=== PATIENT | female | born 1990 | race Caucasian/White ===

== ENCOUNTER 2017-05-03 14:58 | Emergency (ER) | payer SELFPAY ==
[2017-05-03] MEDS ORDERED: NORMAL SALINE 1000 ML 1,000 ML IV ONE (16:50)
[2017-05-03] MEDS ORDERED: DIPHENHYDRAMINE HCL 50 MG/ML VIAL IV ONE (16:50)
--- NOTE | 2017-05-03 16:53 | ER Document Report ---
HPI - HPI Patient complains to provider of: Nasal congestion, cough Onset: Other - 4 days Onset/Duration: Persistent Quality of pain: Achy Pain Level: 4 Context: Patient presents complaining of nasal congestion with cough for the past 4 days. Patient states she has felt warm but has not measured a fever. Patient is currently 18 weeks . Patient denies any urinary symptoms. Patient does report she has had some nausea and vomiting during the . Associated Symptoms: Nonproductive cough, Nausea, Vomiting, Rhinnorhea. denies : Sore throat Exacerbated by: Denies Relieved by: Denies Similar symptoms previously: No Recently seen / treated by doctor: No - ROS ROS below otherwise negative: Yes Systems Reviewed and Negative: Yes All other systems reviewed and negative - CONSTITUTIONAL Constitutional: REPORTS: Chills - EENT EENT: REPORTS: Nasal Drainage-Clear - NEURO Neurology: REPORTS: Headache. DENIES: Weakness, Vision blurred, Dizzinesss / Vertigo - CARDIOVASCULAR Cardiovascular: DENIES: Chest pain - RESPIRATORY Respiratory: REPORTS: Coughing. DENIES: Trouble Breathing - GASTROINTESTINAL Gastrointestinal: REPORTS: Nausea, Patient vomiting. DENIES: Abdominal Pain - REPRODUCTIVE LMP: sept Reproductive: REPORTS: :. DENIES: Abnormal bleeding / discharge - DERM Skin Color: Normal Skin Problems: None Past Medical History - General Information source: Patient - Social History Smoking Status: Current Every Day Smoker Chew tobacco use (# tins/day): No Frequency of alcohol use: None Drug Abuse: None Occupation: [employer] Family History: Reviewed & Not Pertinent Patient has suicidal ideation: No Patient has homicidal ideation: No - Medical History Medical History: Negative Renal/ Medical History: Denies: Hx Peritoneal Dialysis Past Surgical History: Reports: Hx Cholecystectomy, Hx Orthopedic Surgery, Hx Tonsillectomy Vertical Provider Document - CONSTITUTIONAL Agree With Documented VS: Yes Exam Limitations: No Limitations General Appearance: WD/WN, No Apparent Distress - INFECTION CONTROL TRAVEL OUTSIDE OF THE [place]. IN LAST 30 DAYS: No - HEENT HEENT: Atraumatic, Normocephalic. negative: Pharyngeal Exudate, Pharyngeal Tenderness, Pharyngeal Erythema, Tympanic Membrane Red, Tympanic Membrane Bulging Notes: Clear rhinorrhea, swollen nasal mucosa - NECK Neck: Normal Inspection, Supple. negative: Lymphadenopathy-Left, Lymphadenopathy-Right - RESPIRATORY Respiratory: No Respiratory Distress, Chest Non-Tender, Rhonchi O2 Sat by Pulse Oximetry: 100 - CARDIOVASCULAR Cardiovascular: Regular Rate, Regular Rhythm, No Murmur - GI/ABDOMEN Gastrointestinal: Abdomen Soft, Abdomen Non-Tender - BACK Back: Normal Inspection. negative: CVA Tenderness-Right, CVA Tenderness-Left - MUSCULOSKELETAL/EXTREMETIES Musculoskeletal/Extremeties: MAEW - NEURO Level of Consciousness: Awake, Alert, Appropriate Motor/Sensory: No Motor Deficit - DERM Integumentary: Warm, Dry, No Rash Course - Re-evaluation Re-evalutation: 05/03/17 19:29 IV fluids infusing. Patient complains of continued nausea and vomiting. Patient with small amount of emesis to emesis bag 05/03/17 21:13 Patient reports nausea improved, IV fluids infused. Discussed results of chest x-ray. Patient encouraged to follow-up with home management supervisor to get established for continued care. Patient states that she is feeling better. No abdominal tenderness. - Vital Signs Vital signs: Temp Pulse Resp BP Pulse Ox 97.9 F 74 18 92/52 L 100 05/03/17 15:43 05/03/17 15:43 05/03/17 15:43 05/03/17 15:46 05/03/17 15:43 - Laboratory Result Diagrams: 05/03/17 19:08 05/03/17 19:08 Laboratory results interpreted by me: 05/03/17 21:14 Labs- Entire Visit 05/03/17 05/03/17 05/03/17 17:05 19:08 19:08 WBC 12.9 H RBC 3.64 L Hgb 11.5 L Hct 33.1 L MCV 91 MCH 31.5 MCHC 34.6 RDW 13.2 Plt Count 211 Seg Neutrophils % 72.6 Lymphocytes % 19.5 Monocytes % 5.4 Eosinophils % 2.2 Basophils % 0.3 Absolute Neutrophils 9.4 H Absolute Lymphocytes 2.5 Absolute Monocytes 0.7 Absolute Eosinophils 0.3 Absolute Basophils 0.0 Sodium 136.4 L Potassium 3.7 Chloride 105 Carbon Dioxide 24 Anion Gap 7 BUN 7 Creatinine 0.44 L Est GFR ( Amer) > 60 Est GFR (Non-Af Amer) > 60 Glucose 77 Calcium 9.0 Total Bilirubin 0.2 Direct Bilirubin 0.1 Neonat Total Bilirubin Not Reportable Neonat Direct Bilirubin Not Reportable Neonat Indirect Bili Not Reportable AST 38 H ALT 17 Alkaline Phosphatase 51 Total Protein 6.4 Albumin 3.9 Urine Color YELLOW Urine Appearance SLIGHTLY-CLOUDY Urine pH 7.0 Ur Specific [place] 1.026 Urine Protein NEGATIVE Urine Glucose (UA) NEGATIVE Urine Ketones NEGATIVE Urine Blood NEGATIVE Urine Nitrite NEGATIVE Urine Bilirubin NEGATIVE Urine Urobilinogen NEGATIVE Ur Leukocyte Esterase NEGATIVE Urine WBC (Auto) 1 Urine RBC (Auto) 3 Squamous Epi Cells Auto 3 Urine Mucus (Auto) MOD Urine Ascorbic Acid 40 H - Diagnostic Test Radiology reviewed: Reports reviewed Discharge - Discharge Clinical Impression: Nasal congestion Upper respiratory infection Qualifiers: URI type: unspecified URI Qualified Code(s): J06.9 - Acute upper respiratory infection, unspecified Nausea and vomiting Qualifiers: Vomiting type: unspecified Vomiting Intractability: non-intractable Qualified Code(s): R11.2 - Nausea with vomiting, unspecified Condition: Stable Disposition: HOME, SELF-CARE Instructions: Acetaminophen, Antinausea Medication ([facility]), Intravenous (IV) Fluids ([facility]), Upper Respiratory Illness ([facility]), Vomiting ([facility]) Additional Instructions: Return immediately for any new or worsening symptoms Followup with your primary care provider, call tomorrow to make a followup appointment Follow up with the health department to get care established Use saline nasal spray [id number] to help with nasal congestion symptoms You may take Benadryl [id number] to help with nasal congestion symptoms Prescriptions: Metoclopramide HCl [Reglan 10 mg Tablet] 10 mg PO TID PRN #12 tablet PRN Reason: Forms: Return to Work [facility] [NO LOCAL MD] - Follow up tomorrow
--- NOTE | 2017-05-03 17:25 | RADIOLOGY REPORT (SQ) ---
EXAM DESCRIPTION: CHEST PA/LAT COMPLETED DATE/TIME: 05/03/2017 5:19 pm REASON FOR STUDY: cough COMPARISON: None. EXAM PARAMETERS: NUMBER OF VIEWS: two views TECHNIQUE: Digital Frontal and Lateral radiographic views of the chest acquired. RADIATION DOSE: NA LIMITATIONS: none FINDINGS: LUNGS AND PLEURA: No opacities, masses or pneumothorax. No pleural effusion. MEDIASTINUM AND HILAR STRUCTURES: No masses or contour abnormalities. HEART AND VASCULAR STRUCTURES: Heart normal size. No evidence for failure. BONES: No acute findings. HARDWARE: None in the chest. OTHER: No other significant finding. IMPRESSION: NO SIGNIFICANT RADIOGRAPHIC FINDING IN THE CHEST. TECHNICAL DOCUMENTATION: JOB ID: [id number] [employer]- All Rights Reserved
[2017-05-03 17:28] LABS: APPEARANCE,URINE SLIGHTLY-CLOUDY; BILIRUBIN,URINE NEGATIVE (NEGATIVE); COLOR,URINE YELLOW; GLUCOSE, URINE NEGATIVE (NEGATIVE); KETONES,URINE NEGATIVE (NEGATIVE); LEUKOCYTE ESTERASE,URINE NEGATIVE (NEGATIVE); NITRITE,URINE NEGATIVE (NEGATIVE); PROTEIN,URINE NEGATIVE (NEGATIVE); URINE SPECIFIC GRAVITY 1.026; UROBILINOGEN,URINE NEGATIVE mg/dL (<2.0)
[2017-05-03 19:22] LABS: ABSOLUTE EOSINOPHILS # (AUTO) 0.3 10^3/uL (0.0-0.6); ABSOLUTE LYMPHOCYTES (AUTO) 2.5 10^3/uL (0.5-4.7); ABSOLUTE MONOCYTES (AUTO) 0.7 10^3/uL (0.1-1.4); ABSOLUTE NEUT (AUTO) 9.4 10^3/uL (1.7-8.2); BASOPHILS % (AUTO) 0.3 % (0-2); EOSINOPHILS % (AUTO) 2.2 % (0-6); HEMATOCRIT 33.1 % (36.0-47.0); HEMOGLOBIN 11.5 g/dL (12.0-15.5); LYMPHOCYTES % (AUTO) 19.5 % (13-45); MEAN CORPUSCULAR HEMOGLOBIN 31.5 pg (27.0-33.4); MEAN CORPUSCULAR HGB CONC 34.6 g/dL (32.0-36.0); MEAN CORPUSCULAR VOLUME 91 fl (80-97); MONOCYTES % (AUTO) 5.4 % (3-13); PLATELET COUNT 211 10^3/uL (150-450); RED BLOOD COUNT 3.64 10^6/uL (3.72-5.28); RED CELL DISTRIBUTION WIDTH 13.2 % (11.5-14.0); SEGMENTED NEUTROPHILS % (AUTO) 72.6 % (42-78); TOTAL CELLS COUNTED % (AUTO) 100 %; WHITE BLOOD COUNT 12.9 10^3/uL (4.0-10.5)
[2017-05-03] MEDS ORDERED: METOCLOPRAMIDE HCL INJ/PF 10 MG/2 ML SDV IV ONE (19:29)
[2017-05-03 19:41] LABS: ALANINE AMINOTRANSFERASE 17 U/L (9-52); ALBUMIN 3.9 g/dL (3.5-5.0); ALKALINE PHOSPHATASE 51 U/L (38-126); ANION GAP 7 (5-19); ASPARTATE AMINO TRANSFERASE 38 U/L (14-36); BILIRUBIN,DIRECT 0.1 mg/dL (0.0-0.4); BILIRUBIN,TOTAL 0.2 mg/dL (0.2-1.3); BLOOD UREA NITROGEN 7 mg/dL (7-20); CARBON DIOXIDE 24 mmol/L (22-30); CHLORIDE 105 mmol/L (98-107); GLUCOSE 77 mg/dL (75-110); POTASSIUM 3.7 mmol/L (3.6-5.0); SODIUM 136.4 mmol/L (137-145); TOTAL PROTEIN 6.4 g/dL (6.3-8.2)
[2017-05-03 21:49] VITALS: BP 109/66
== END 2017-05-03 21:52 | disposition home or self-care (01) ==
LOC: ER 14:58
DX: O99.512 Diseases of the respiratory system complicating pregnancy, second trimester (principal); J06.9 Acute upper respiratory infection, unspecified; J34.89 Other specified disorders of nose and nasal sinuses; O21.9 Vomiting of pregnancy, unspecified; O26.892 Other specified pregnancy related conditions, second trimester; R09.81 Nasal congestion; R05 Cough; R51 Headache; O99.332 Smoking (tobacco) complicating pregnancy, second trimester; Z3A.18 18 weeks gestation of pregnancy
CPT/HCPCS: 99283; 96361; 96374; 96375; 36415; 85025; 80053; 81001; 71046; J1200; J2765; J7030

== ENCOUNTER 2017-05-25 14:59 | Emergency (ER) | payer SELFPAY ==
[2017-05-25 16:27] LABS: A TYPE INFLUENZA AG NEGATIVE (NEGATIVE)
[2017-05-25 16:28] LABS: B INFLUENZA AG NEGATIVE (NEGATIVE)
[2017-05-25] MEDS ORDERED: DEXAMETHASONE SOD PHOS INJ 10 MG/1 ML VIAL IM ONE (16:36)
[2017-05-25] MEDS ORDERED: PENICILLIN V POTASS 125 MG/5 ML SUSP 100 ML PO ONE (16:37)
--- NOTE | 2017-05-25 17:18 | ER Document Report ---
ED General - General Chief Complaint: Flu Symptoms Stated Complaint: FLU SYMPTOMS Time Seen by Provider: 05/25/17 15:40 Information source: Patient TRAVEL OUTSIDE OF THE U.S. IN LAST 30 DAYS: No - HPI Patient complains to provider of: i think i am exposed to mold in my apartment Onset: Other - weeks Onset/Duration: Gradual Context: Patient states that for the last few weeks she has not felt well with congestion cough and clear nasal discharge. She states that she has been on azithromycin and Benadryl without any relief.She is currently 20 weeks . Patient states that she believes that the place she rents has mold and she is being exposed to it. She did ask her landlord to do the studies for this and he refused stating that she would have to pay somebody to get this conducted.Patient does have exercise-induced asthma. - Related Data Allergies/Adverse Reactions: acetaminophen [From Percocet] Allergy (Verified 05/03/17 15:00) grape Allergy (Verified 05/25/17 15:04) latex Allergy (Verified 05/03/17 15:00) oxycodone [From Percocet] Allergy (Verified 05/03/17 15:00) tramadol Allergy (Verified 05/25/17 15:04) Past Medical History - General Information source: Patient - Social History Smoking Status: Current Every Day Smoker Chew tobacco use (# tins/day): No Frequency of alcohol use: None Drug Abuse: None Lives with: Friend Family History: Reviewed & Not Pertinent Patient has suicidal ideation: No Patient has homicidal ideation: No - Past Medical History Cardiac Medical History: Reports: None Pulmonary Medical History: Reports: None EENT Medical History: Reports: None Neurological Medical History: Reports: None Endocrine Medical History: Reports: None Renal/ Medical History: Reports: None. Denies: Hx Peritoneal Dialysis Malignancy Medical History: Reports: None GI Medical History: Reports: None Musculoskeltal Medical History: Reports None Skin Medical History: Reports None Psychiatric Medical History: Reports: None Traumatic Medical History: Reports: None Infectious Medical History: Reports: None Past Surgical History: Reports: Hx Cholecystectomy, Hx Orthopedic Surgery, Hx Tonsillectomy - Immunizations History of Influenza Vaccine for 01/2017 - 06/2017 Season: No Review of Systems - Review of Systems Constitutional: No symptoms reported EENT: Nose congestion, Nose discharge Cardiovascular: No symptoms reported Respiratory: No symptoms reported Gastrointestinal: No symptoms reported Genitourinary: No symptoms reported Female Genitourinary: No symptoms reported Musculoskeletal: No symptoms reported Skin: No symptoms reported Hematologic/Lymphatic: No symptoms reported Neurological/Psychological: No symptoms reported Physical Exam - Vital signs Vitals: Temp Pulse Resp BP Pulse Ox 98.6 F 98 16 116/58 L 97 05/25/17 15:07 05/25/17 15:07 05/25/17 15:07 05/25/17 15:07 05/25/17 15:07 Interpretation: Normal - Notes Notes: PHYSICAL EXAMINATION: GENERAL: Well-appearing, well-nourished and in no acute distress. HEAD: Atraumatic, normocephalic. EYES: Pupils equal round and reactive to light, extraocular movements intact, conjunctiva are normal. ENT: Nares patent, oropharynx clear without exudates. Moist mucous membranes. NECK: Normal range of motion, supple without lymphadenopathy LUNGS: Breath sounds clear to auscultation bilaterally and equal. No wheezes rales or rhonchi. HEART: Regular rate and rhythm without murmurs ABDOMEN: Soft, nontender, nondistended abdomen. No guarding, no rebound. No masses appreciated. Female : deferred Musculoskeletal: Normal range of motion, no pitting or edema. No cyanosis. NEUROLOGICAL: Cranial nerves grossly intact. Normal speech, normal gait. Normal sensory, motor exams PSYCH: Normal mood, normal affect. SKIN: Warm, Dry, normal turgor, no rashes or lesions noted. Course - Re-evaluation Re-evalutation: 05/25/17 17:13 I talked to the patient extensively for at least 20 minutes with her friend present. I told her once again that she should remove herself from the place that she is renting since she states that every time she is in the house she is ill and when she removes herself from the house she feels better.Patient states that she wants more testing done and she thought that I could do in the emergency department. I informed her that we do not conduct such studies here and she would have to follow-up with a specialist in order to have mold testing done.She states that she moved here from [place] to get away from her baby daddy as well as to start a job here and she cannot relocate.I did tell her that she should talk to her Landlord and tell him that there is something in the house that is causing her to be ill and she needs to move. I even offered to write a note in regards to this. Patient states that her landlord is "funny " and will probably not let her out of release until that she documents that it is mold that is causing this.She also stated that she was having contractions today. I did call OB and she is 22 weeks and they will see her to monitor the baby. Patient is adamant that mold testing needs to be done, Despite my lengthy explanation of why the emergency department is not the place for such studies are conducted. 05/25/17 17:20 Patient now states that she is having contractions on and off for the last 2 days. The tech is calling OB to see if I can get her monitored up there since she is 22 weeks . - Vital Signs Vital signs: Temp Pulse Resp BP Pulse Ox 98.6 F 98 16 116/58 L 97 05/25/17 15:07 05/25/17 15:07 05/25/17 15:07 05/25/17 15:07 05/25/17 15:07 Discharge - Discharge Clinical Impression: Congestion of upper airway Condition: Stable Disposition: HOME, SELF-CARE Additional Instructions: Return to the emergency department if you have worsening symptoms. Once again I encourage you to move out of your place of residence has it seems that there is some type of allergen in the air causing you to have a reaction. PLEASE GO DIRECTLY TO OB TO BE MONITORED. Referrals: [facility] [Provider Group] - Follow up as needed BECKY MATA MD [ACTIVE STAFF] - Follow up as needed
[2017-05-25 17:31] VITALS: BP 106/48
== END 2017-05-25 17:24 | disposition home or self-care (01) ==
LOC: ER 14:59
DX: R09.89 Other specified symptoms and signs involving the circulatory and respiratory systems (principal); R09.81 Nasal congestion; R05 Cough; Z3A.20 20 weeks gestation of pregnancy; F17.200 Nicotine dependence, unspecified, uncomplicated
CPT/HCPCS: 87804; 99283; J3490

== ENCOUNTER 2017-05-25 17:37 | Outpatient (CLI) | payer SELFPAY ==
[2017-05-25 18:22] LABS: AMORPHOUS SEDIMENT,URINE TRACE /HPF; APPEARANCE,URINE SLIGHTLY-CLOUDY; BILIRUBIN,URINE NEGATIVE (NEGATIVE); COLOR,URINE YELLOW; GLUCOSE, URINE NEGATIVE (NEGATIVE); KETONES,URINE NEGATIVE (NEGATIVE); LEUKOCYTE ESTERASE,URINE NEGATIVE (NEGATIVE); NITRITE,URINE NEGATIVE (NEGATIVE); PROTEIN,URINE NEGATIVE (NEGATIVE); URINE SPECIFIC GRAVITY 1.018
[2017-05-25 18:43] LABS: URINE AMPHETAMINES SCREEN NEGATIVE; URINE BARBITURATES SCREEN NEGATIVE; URINE BENZODIAZEPINES SCREEN NEGATIVE; URINE COCAINE SCREEN NEGATIVE; URINE METHADONE SCREEN NEGATIVE; URINE PHENCYCLIDINE SCREEN NEGATIVE
[2017-05-25 18:44] LABS: URINE MARIJUANA (THC) SCREEN UNCONFIRMED POSITIVE
== END 2017-05-25 18:47 | disposition home or self-care (01) ==
LOC: LC 17:37
PROVIDERS: ATTEND Obstetrics & Gynecology Gynecology
PROC: 4A1HXCZ Monitoring of Products of Conception, Cardiac Rate, External Approach (ICD-10-PCS; principal; 2017-05-25)
DX: O99.282 Endocrine, nutritional and metabolic diseases complicating pregnancy, second trimester (principal); E86.0 Dehydration; Z3A.22 22 weeks gestation of pregnancy
CPT/HCPCS: 80307; 81001

== ENCOUNTER 2017-05-31 14:02 | Emergency (ER) | payer SELFPAY ==
[2017-05-31] MEDS ORDERED: NORMAL SALINE 1000 ML 1,000 ML IV ONE (15:36)
[2017-05-31] MEDS ORDERED: METOCLOPRAMIDE HCL INJ/PF 10 MG/2 ML SDV IV ONE (15:36)
[2017-05-31 16:04] LABS: ABSOLUTE BASOPHILS # (AUTO) 0.1 10^3/uL (0.0-0.2); ABSOLUTE EOSINOPHILS # (AUTO) 0.2 10^3/uL (0.0-0.6); ABSOLUTE LYMPHOCYTES (AUTO) 2.3 10^3/uL (0.5-4.7); ABSOLUTE MONOCYTES (AUTO) 0.7 10^3/uL (0.1-1.4); ABSOLUTE NEUT (AUTO) 6.7 10^3/uL (1.7-8.2); BASOPHILS % (AUTO) 1.5 % (0-2); EOSINOPHILS % (AUTO) 1.6 % (0-6); HEMATOCRIT 36.1 % (36.0-47.0); HEMOGLOBIN 12.9 g/dL (12.0-15.5); LYMPHOCYTES % (AUTO) 22.8 % (13-45); MEAN CORPUSCULAR HEMOGLOBIN 31.4 pg (27.0-33.4); MEAN CORPUSCULAR HGB CONC 35.6 g/dL (32.0-36.0); MEAN CORPUSCULAR VOLUME 88 fl (80-97); MONOCYTES % (AUTO) 6.8 % (3-13); PLATELET COUNT 191 10^3/uL (150-450); RED CELL DISTRIBUTION WIDTH 12.4 % (11.5-14.0); SEGMENTED NEUTROPHILS % (AUTO) 67.3 % (42-78); TOTAL CELLS COUNTED % (AUTO) 100 %
--- NOTE | 2017-05-31 16:17 | ER Document Report ---
ED General - General Chief Complaint: Dizziness Stated Complaint: DIZZINESS Time Seen by Provider: 05/31/17 15:35 TRAVEL OUTSIDE OF THE [place]. IN LAST 30 DAYS: No - HPI Patient complains to provider of: Nausea, vomiting, diarrhea, dizziness Notes: 22 week female presents with nausea vomiting and diarrhea. Going on for about 5 days. Patient was recently started on Augmentin for sinus infection. Has had profuse watery diarrhea. Nausea. Given patient has moved to the community from [place]. Does not have an ENROLLMENT MANAGEMENT DIRECTOR nearby. Has been receiving care. Denies fever chills chest pain or cough. - Related Data Allergies/Adverse Reactions: grape Allergy (Verified 05/31/17 16:17) latex Allergy (Verified 05/31/17 16:17) oxycodone [From Percocet] Allergy (Verified 05/31/17 16:17) tramadol Allergy (Verified 05/31/17 16:17) Past Medical History - Social History Smoking Status: Never Smoker Chew tobacco use (# tins/day): No Frequency of alcohol use: None Drug Abuse: None Family History: Reviewed & Not Pertinent Patient has suicidal ideation: No Patient has homicidal ideation: No Renal/ Medical History: Denies: Hx Peritoneal Dialysis Past Surgical History: Reports: Hx Cholecystectomy, Hx Orthopedic Surgery, Hx Tonsillectomy Review of Systems - Review of Systems Constitutional: No symptoms reported EENT: No symptoms reported Cardiovascular: No symptoms reported Respiratory: No symptoms reported Gastrointestinal: Diarrhea, Nausea, Vomiting Genitourinary: No symptoms reported Female Genitourinary: No symptoms reported Musculoskeletal: No symptoms reported Skin: No symptoms reported Hematologic/Lymphatic: No symptoms reported Neurological/Psychological: No symptoms reported Physical Exam - Vital signs Vitals: Temp Pulse Resp BP Pulse Ox 98.5 F 86 20 110/51 L 98 05/31/17 14:24 05/31/17 14:24 05/31/17 14:24 05/31/17 14:24 05/31/17 14:24 Interpretation: Normal - General General appearance: Appears well, Alert - HEENT Head: Normocephalic, Atraumatic Eyes: Normal Pupils: PERRL - Respiratory Respiratory status: No respiratory distress Chest status: Nontender Breath sounds: Normal Chest palpation: Normal - Cardiovascular Rhythm: Regular Heart sounds: Normal auscultation Murmur: No - Abdominal Inspection: Normal Distension: No distension Bowel sounds: Normal Tenderness: Nontender Organomegaly: No organomegaly - Back Back: Normal, Nontender - Extremities General upper extremity: Normal inspection, Nontender, Normal color, Normal ROM , Normal temperature General lower extremity: Normal inspection, Nontender, Normal color, Normal ROM , Normal temperature, Normal weight bearing. No: Mallory's sign - Neurological Neuro grossly intact: Yes Cognition: Normal Orientation: AAOx4 [place] Coma Scale Eye Opening: Spontaneous [place] Coma Scale Verbal: Oriented [place] Coma Scale Motor: Obeys Commands [place] Coma Scale Total: 15 Speech: Normal Motor strength normal: LUE, RUE, LLE, RLE Sensory: Normal - Psychological Associated symptoms: Normal affect, Normal mood - Skin Skin Temperature: Warm Skin Moisture: Dry Skin Color: Normal Course - Re-evaluation Re-evalutation: 05/31/17 16:59 Well-appearing female in no acute distress stable vital signs within normal limits. Given fluid resuscitation and antiemetics feeling much improved. Patient's extensive lab workup unremarkable at this time. Patient unable to provide stool sample for urine sample at this time. Patient would like to be discharged home with referral to ENROLLMENT MANAGEMENT DIRECTOR for follow-up tomorrow. - Vital Signs Vital signs: Temp Pulse Resp BP Pulse Ox 98.5 F 86 20 110/51 L 98 05/31/17 14:24 05/31/17 14:24 05/31/17 14:24 05/31/17 14:24 05/31/17 14:24 - Laboratory Result Diagrams: 05/31/17 15:45 05/31/17 15:45 Laboratory results interpreted by me: 05/31/17 05/31/17 15:45 16:50 Sodium 133.5 L Creatinine 0.42 L AST 46 H Urine HCG, Qual POSITIVE H - EKG Interpretation by Me Additional EKG results interpreted by me: 05/31/17 17:11 Normal sinus 84 bpm, normal ND interval, normal QTC, no ST elevations or depressions. Discharge - Discharge Clinical Impression: Gastroenteritis Condition: Stable Disposition: HOME, SELF-CARE Instructions: Antinausea Medication ([facility]) Prescriptions: Loperamide HCl [Imodium A-D] 2 mg PO BID #10 tablet Metoclopramide HCl [Reglan 10 mg Tablet] 1 - 2 tab PO ASDIR PRN #25 tablet PRN Reason: Referrals: KATHY RODRÍGUEZ MD [ACTIVE STAFF] - Follow up as needed HUGO WILSON MD [ACTIVE STAFF] - Follow up as needed
[2017-05-31 16:22] LABS: ALANINE AMINOTRANSFERASE 20 U/L (9-52); ALBUMIN 3.8 g/dL (3.5-5.0); ALKALINE PHOSPHATASE 69 U/L (38-126); ANION GAP 10 (5-19); ASPARTATE AMINO TRANSFERASE 46 U/L (14-36); BILIRUBIN,DIRECT 0.4 mg/dL (0.0-0.4); BILIRUBIN,TOTAL 0.5 mg/dL (0.2-1.3); BLOOD UREA NITROGEN 7 mg/dL (7-20); CALCIUM 9.2 mg/dL (8.4-10.2); CARBON DIOXIDE 24 mmol/L (22-30); CHLORIDE 100 mmol/L (98-107); GLUCOSE 77 mg/dL (75-110); POTASSIUM 3.6 mmol/L (3.6-5.0); SODIUM 133.5 mmol/L (137-145); TOTAL PROTEIN 6.7 g/dL (6.3-8.2)
[2017-05-31 17:10] LABS: APPEARANCE,URINE SLIGHTLY-CLOUDY; BILIRUBIN,URINE NEGATIVE (NEGATIVE); COLOR,URINE YELLOW; GLUCOSE, URINE NEGATIVE (NEGATIVE); KETONES,URINE 20 mg/dL (NEGATIVE); LEUKOCYTE ESTERASE,URINE MODERATE (NEGATIVE); NITRITE,URINE NEGATIVE (NEGATIVE); PROTEIN,URINE NEGATIVE (NEGATIVE); URINE SPECIFIC GRAVITY 1.012; UROBILINOGEN,URINE NEGATIVE mg/dL (<2.0)
[2017-05-31 17:27] VITALS: BP 103/51
--- NOTE | 2017-05-31 21:21 | EKG REPORT ---
SEVERITY:- BORDERLINE ECG - SINUS RHYTHM BORDERLINE T ABNORMALITIES, ANTERIOR LEADS : Confirmed by: Elizabeth Galindo 31-May-2017 21:21:03
== END 2017-05-31 17:26 | disposition home or self-care (01) ==
LOC: ER 14:02
DX: K52.9 Noninfective gastroenteritis and colitis, unspecified (principal); R42 Dizziness and giddiness; R11.2 Nausea with vomiting, unspecified; Z91.040 Latex allergy status; Z88.6 Allergy status to analgesic agent; Z90.49 Acquired absence of other specified parts of digestive tract
CPT/HCPCS: 93005; 99284; 96361; 96374; 36415; 85025; 81025; 80053; 81001; 93010; J2765; J7030

== ENCOUNTER 2017-07-31 21:50 | Outpatient (CLI) | payer SELFPAY ==
[2017-07-31 22:50] LABS: APPEARANCE,URINE CLEAR; BILIRUBIN,URINE NEGATIVE (NEGATIVE); COLOR,URINE YELLOW; GLUCOSE, URINE NEGATIVE (NEGATIVE); KETONES,URINE NEGATIVE (NEGATIVE); LEUKOCYTE ESTERASE,URINE NEGATIVE (NEGATIVE); NITRITE,URINE NEGATIVE (NEGATIVE); PROTEIN,URINE NEGATIVE (NEGATIVE); URINE SPECIFIC GRAVITY 1.003; UROBILINOGEN,URINE NEGATIVE mg/dL (<2.0)
[2017-07-31 23:03] LABS: URINE AMPHETAMINES SCREEN NEGATIVE; URINE BARBITURATES SCREEN NEGATIVE; URINE BENZODIAZEPINES SCREEN NEGATIVE; URINE COCAINE SCREEN NEGATIVE; URINE METHADONE SCREEN NEGATIVE; URINE PHENCYCLIDINE SCREEN NEGATIVE
[2017-07-31 23:09] LABS: URINE MARIJUANA (THC) SCREEN UNCONFIRMED POSITIVE
--- NOTE | 2017-07-31 23:14 | Non Stress Test Report ---
Non Stress Test Datetime Report Generated by CPN: 07/31/2017 23:14 DEMOGRAPHIC Test Number: 1 EGA NST: 31.1 INDICATION Indication for Study: Decreased Movement; Ordered by Provider MONITORING Monitor Explained: Monitor Explained; Test Explained; Patient Verbalized Understanding; Other Time on Monitor: 07/31/2017 22:04 Time off Monitor: 07/31/2017 23:01 NST Duration: 57 NST INTERVENTIONS NST Interventions: PO Hydration Physician Notified NST: Dr. Jose BABY A: [id number] BABY A Movement : Decreased Contraction Frequency : 3-10 FHR Baseline : 135 Accelerations : 15X15 Decelerations : None Variability : Moderate 6-25bpm NST Review: Meets Criteria for Reactive NST NST Review and Verified By : AUSTYN Borja NST Results: Reactive NST REPORT Report Trigger: Send Report
== END 2017-07-31 23:13 | disposition home or self-care (01) ==
LOC: LC 21:50
PROVIDERS: ATTEND Obstetrics & Gynecology
PROC: 4A1HXCZ Monitoring of Products of Conception, Cardiac Rate, External Approach (ICD-10-PCS; principal; 2017-07-31)
DX: O36.8130 Decreased fetal movements, third trimester, not applicable or unspecified (principal); Z3A.31 31 weeks gestation of pregnancy
CPT/HCPCS: 59025; 81001; 80307; G0480 ×2

== ENCOUNTER 2017-08-15 11:05 | Outpatient (CLI) | payer SELFPAY ==
--- NOTE | 2017-08-15 12:01 | Non Stress Test Report ---
Non Stress Test Datetime Report Generated by CPN: 08/15/2017 12:00 DEMOGRAPHIC EGA NST: 33.2 INDICATION Indication for Study: Decreased Movement; Ordered by Provider MONITORING Monitor Explained: Monitor Explained; Test Explained; Patient Verbalized Understanding Time on Monitor: 08/15/2017 11:20 Time off Monitor: 08/15/2017 11:54 NST Duration: 34 NST INTERVENTIONS NST Interventions: PO Hydration; Reposition Patient Physician Notified NST: DR REED BABY A: [id number] BABY A Movement : Present Contraction Frequency : NONE FHR Baseline : 135 Accelerations : 15X15 Decelerations : None Variability : Moderate 6-25bpm NST Review: Meets Criteria for Reactive NST NST Review and Verified By : FELIPE Singh Results: Reactive NST REPORT Report Trigger: Send Report
== END 2017-08-15 11:59 | disposition home or self-care (01) ==
LOC: LC 11:05
PROVIDERS: ATTEND Obstetrics & Gynecology
PROC: 4A1HXCZ Monitoring of Products of Conception, Cardiac Rate, External Approach (ICD-10-PCS; principal; 2017-08-15)
DX: O36.8130 Decreased fetal movements, third trimester, not applicable or unspecified (principal); Z3A.33 33 weeks gestation of pregnancy
CPT/HCPCS: 59025

== ENCOUNTER → 2017-08-21 | Outpatient (CLI) | payer SELFPAY ==
--- NOTE | 2017-08-21 16:47 | RADIOLOGY REPORT (SQ) ---
EXAM DESCRIPTION: U/S OB 14+ TRNABD 1GES W/O DOP COMPLETED DATE/TIME: 08/21/2017 1:34 pm REASON FOR STUDY: ENCTR FOR SUPERVISION OF OTHER NORMAL , 3RD TRIMESTER (Z34.83) Z34.83 EN COUNTER FOR SUPRVSN OF NORMAL , THIRD TRIM COMPARISON: None. TECHNIQUE: Static and Dynamic grayscale imaging performed of gravid uterus using transabdominal appr oach. Additional selected color Doppler and spectral images recorded. All stored on PACS. LIMITATIONS: None. FINDINGS: EGA: By multiple measurements, 31 weeks 4 days. No significant discrepancy between abdomi nal circumference and head circumference/BPD REINIER: 10/19/2017 EFW: 1807 g grams PERCENTILE: 13th percentile KATHRYN: 14 cm PLACENTA: Posterior, GRADE: II PRESENTATION: Cephalic. ANATOMY: HEART RATE: 155 beats per minute. FOUR CHAMBER HEART: Visualized. THREE VESSEL CORD: Yes. CORD INSERTION: Visualized. KIDNEYS AND BLADDER: Visualized. Appear normal. STOMACH: Visualized. Appears normal. SPINE: Normal as visualized. BRAIN AND LATERAL VENTRICLES: Limited visualization, head inferior in the maternal pelvis. OTHER: No other significant finding. MATERNAL ADNEXA: Maternal ovaries not visualized. CERVICAL LENGTH: Not evaluated OTHER: No other significant finding. IMPRESSION: LIVING INTRAUTERINE . ESTIMATED GESTATIONAL AGE 31 weeks 4 days by multiple measurements Trimester of : Third trimester - 28 weeks to delivery. TECHNICAL DOCUMENTATION: JOB ID: [id number] [employer]- All Rights Reserved Reading location - IP/workstation name: [facility]
== END ==
LOC: RAD 12:46
PROVIDERS: ATTEND Nurse Practitioner Women's Health
DX: Z34.83 Encounter for supervision of other normal pregnancy, third trimester (principal)
CPT/HCPCS: 76805

== ENCOUNTER 2017-08-28 22:40 | Outpatient (CLI) | payer SELFPAY ==
[2017-08-28] MEDS ORDERED: RINGERS SOLUTION,LACTATED 1,000 ML IV PRN (23:19)
[2017-08-28] MEDS ORDERED: RINGERS SOLUTION,LACTATED 1,000 ML IV ONE (23:19)
[2017-08-28] MEDS ORDERED: HYDROXYZINE PAMOATE 50 MG CAPSULE PO ONE (23:20)
[2017-08-28 23:23] LABS: APPEARANCE,URINE CLEAR; BILIRUBIN,URINE NEGATIVE (NEGATIVE); COLOR,URINE STRAW; GLUCOSE, URINE NEGATIVE (NEGATIVE); KETONES,URINE NEGATIVE (NEGATIVE); LEUKOCYTE ESTERASE,URINE NEGATIVE (NEGATIVE); NITRITE,URINE NEGATIVE (NEGATIVE); PROTEIN,URINE NEGATIVE (NEGATIVE); URINE SPECIFIC GRAVITY 1.003; UROBILINOGEN,URINE NEGATIVE mg/dL (<2.0)
[2017-08-28 23:29] LABS: URINE AMPHETAMINES SCREEN NEGATIVE; URINE BARBITURATES SCREEN NEGATIVE; URINE BENZODIAZEPINES SCREEN NEGATIVE; URINE COCAINE SCREEN NEGATIVE; URINE MARIJUANA (THC) SCREEN NEGATIVE; URINE METHADONE SCREEN NEGATIVE; URINE PHENCYCLIDINE SCREEN NEGATIVE
[2017-08-28] MEDS ORDERED: HYDROXYZINE PAMOATE 50 MG CAPSULE ONE (23:50)
== END 2017-08-29 00:33 | disposition home or self-care (01) ==
LOC: LC 22:40
PROVIDERS: ATTEND Obstetrics & Gynecology
PROC: 4A1HXCZ Monitoring of Products of Conception, Cardiac Rate, External Approach (ICD-10-PCS; principal; 2017-08-28)
DX: O47.03 False labor before 37 completed weeks of gestation, third trimester (principal); Z3A.35 35 weeks gestation of pregnancy
CPT/HCPCS: 59025; 80307; 81001

== ENCOUNTER 2017-09-03 05:40 | Outpatient (CLI) | payer SELFPAY ==
[2017-09-03 06:37] LABS: APPEARANCE,URINE CLEAR; BILIRUBIN,URINE NEGATIVE (NEGATIVE); COLOR,URINE STRAW; GLUCOSE, URINE NEGATIVE (NEGATIVE); KETONES,URINE NEGATIVE (NEGATIVE); LEUKOCYTE ESTERASE,URINE NEGATIVE (NEGATIVE); NITRITE,URINE NEGATIVE (NEGATIVE); PROTEIN,URINE NEGATIVE (NEGATIVE); URINE SPECIFIC GRAVITY 1.002; UROBILINOGEN,URINE NEGATIVE mg/dL (<2.0)
[2017-09-03 06:55] LABS: URINE COCAINE SCREEN NEGATIVE
[2017-09-03 07:03] LABS: URINE AMPHETAMINES SCREEN NEGATIVE; URINE BARBITURATES SCREEN NEGATIVE; URINE BENZODIAZEPINES SCREEN NEGATIVE; URINE MARIJUANA (THC) SCREEN NEGATIVE; URINE METHADONE SCREEN NEGATIVE; URINE PHENCYCLIDINE SCREEN NEGATIVE
== END 2017-09-03 08:13 | disposition home or self-care (01) ==
LOC: LC 05:40
PROVIDERS: ATTEND Obstetrics & Gynecology
PROC: 4A1HXCZ Monitoring of Products of Conception, Cardiac Rate, External Approach (ICD-10-PCS; principal; 2017-09-03)
DX: Z34.93 Encounter for supervision of normal pregnancy, unspecified, third trimester (principal)
CPT/HCPCS: 80307; 81001

== ENCOUNTER 2017-09-28 22:31 | Outpatient (CLI) | payer SELFPAY ==
--- NOTE | 2017-09-28 22:36 | Non Stress Test Report ---
Non Stress Test Datetime Report Generated by CPN: 09/28/2017 22:35 DEMOGRAPHIC EGA NST: 36.0 EGA NST: 35.2 INDICATION Indication for Study: Ordered by Provider Indication for Study: Ordered by Provider Indication for Study (NST) Other: lc MONITORING Monitor Explained: Monitor Explained; Test Explained; Patient Verbalized Understanding Monitor Explained: Monitor Explained; Test Explained; Patient Verbalized Understanding Time on Monitor: 09/03/2017 05:58 Time on Monitor: 08/29/2017 23:04 Time off Monitor: 08/29/2017 00:29 NST Duration: -1355 NST INTERVENTIONS NST Interventions: PO Hydration NST Interventions: PO Hydration; IV Fluids Physician Notified NST: Dr. Garcia Physician Notified NST: Dr. Garcia BABY A: [id number] BABY A Movement : Present Movement : Present Contraction Frequency : irregular FHR Baseline : 130 Accelerations : 15X15 Accelerations : 15X15 Decelerations : None Decelerations : None Variability : Moderate 6-25bpm Variability : Moderate 6-25bpm NST Review: Meets Criteria for Reactive NST NST Review: Meets Criteria for Reactive NST NST Review and Verified By : Karo Ramirez [facility] NST Results: Reactive NST Results: Reactive NST REPORT Report Trigger: Send Report
[2017-09-28 23:09] LABS: APPEARANCE,URINE SLIGHTLY-CLOUDY; BILIRUBIN,URINE NEGATIVE (NEGATIVE); COLOR,URINE YELLOW; GLUCOSE, URINE NEGATIVE (NEGATIVE); KETONES,URINE NEGATIVE (NEGATIVE); LEUKOCYTE ESTERASE,URINE TRACE (NEGATIVE); NITRITE,URINE NEGATIVE (NEGATIVE); PROTEIN,URINE NEGATIVE (NEGATIVE); URINE SPECIFIC GRAVITY 1.005; UROBILINOGEN,URINE NEGATIVE mg/dL (<2.0)
[2017-09-28 23:27] LABS: URINE AMPHETAMINES SCREEN NEGATIVE; URINE BARBITURATES SCREEN NEGATIVE; URINE BENZODIAZEPINES SCREEN NEGATIVE; URINE COCAINE SCREEN NEGATIVE; URINE MARIJUANA (THC) SCREEN NEGATIVE; URINE METHADONE SCREEN NEGATIVE; URINE PHENCYCLIDINE SCREEN NEGATIVE
== END 2017-09-28 23:44 | disposition home or self-care (01) ==
LOC: LC 22:31
PROVIDERS: ATTEND Obstetrics & Gynecology
PROC: 4A1HXCZ Monitoring of Products of Conception, Cardiac Rate, External Approach (ICD-10-PCS; principal; 2017-09-28)
DX: Z34.93 Encounter for supervision of normal pregnancy, unspecified, third trimester (principal)
CPT/HCPCS: 80307; 81005

== ENCOUNTER 2017-10-05 03:00 | Inpatient (IN) | payer MEDICAID ==
[2017-10-05 03:36] LABS: APPEARANCE,URINE CLEAR; BILIRUBIN,URINE NEGATIVE (NEGATIVE); COLOR,URINE STRAW; GLUCOSE, URINE NEGATIVE (NEGATIVE); KETONES,URINE NEGATIVE (NEGATIVE); LEUKOCYTE ESTERASE,URINE NEGATIVE (NEGATIVE); NITRITE,URINE NEGATIVE (NEGATIVE); PROTEIN,URINE NEGATIVE (NEGATIVE); URINE SPECIFIC GRAVITY 1.002; UROBILINOGEN,URINE NEGATIVE mg/dL (<2.0)
[2017-10-05 03:54] LABS: URINE AMPHETAMINES SCREEN NEGATIVE; URINE BARBITURATES SCREEN NEGATIVE; URINE BENZODIAZEPINES SCREEN NEGATIVE; URINE COCAINE SCREEN NEGATIVE; URINE MARIJUANA (THC) SCREEN NEGATIVE; URINE METHADONE SCREEN NEGATIVE; URINE PHENCYCLIDINE SCREEN NEGATIVE
[2017-10-05] MEDS ORDERED: RINGERS SOLUTION,LACTATED 1,000 ML IV PRN (06:46)
[2017-10-05] MEDS ORDERED: RINGERS SOLUTION,LACTATED 1,000 ML IV ONE (06:46)
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
[2017-10-05] MEDS ORDERED: ONDANSETRON HCL INJ/PF 4 MG/2 ML SDV IV PRN (07:36)
[2017-10-05] MEDS ORDERED: ONDANSETRON 4 MG TAB.RAPDIS ONE (07:37)
[2017-10-05] MEDS ORDERED: MISOPROSTOL 0.2 MG TABLET ONE (07:37)
[2017-10-05] MEDS ORDERED: OXYTOCIN/NORMAL SALINE 20 UNIT/1,000 ML RTUINJ ONE ×2 (07:38→10:22)
[2017-10-05] MEDS ORDERED: LIDOCAINE 1% INJ-PF (10 MG/ML) 30 ML SDV ONE (07:38)
[2017-10-05 07:39] LABS: ABSOLUTE EOSINOPHILS # (AUTO) 0.2 10^3/uL (0.0-0.6); ABSOLUTE LYMPHOCYTES (AUTO) 2.4 10^3/uL (0.5-4.7); ABSOLUTE MONOCYTES (AUTO) 0.8 10^3/uL (0.1-1.4); BASOPHILS % (AUTO) 0.2 % (0-2); EOSINOPHILS % (AUTO) 1.4 % (0-6); HEMATOCRIT 30.2 % (36.0-47.0); HEMOGLOBIN 10.6 g/dL (12.0-15.5); MEAN CORPUSCULAR HEMOGLOBIN 29.4 pg (27.0-33.4); MEAN CORPUSCULAR HGB CONC 34.9 g/dL (32.0-36.0); MEAN CORPUSCULAR VOLUME 84 fl (80-97); MONOCYTES % (AUTO) 6.7 % (3-13); PLATELET COUNT 187 10^3/uL (150-450); RED BLOOD COUNT 3.59 10^6/uL (3.72-5.28); RED CELL DISTRIBUTION WIDTH 13.3 % (11.5-14.0); SEGMENTED NEUTROPHILS % (AUTO) 70.7 % (42-78); TOTAL CELLS COUNTED % (AUTO) 100 %; WHITE BLOOD COUNT 11.4 10^3/uL (4.0-10.5)
--- NOTE | 2017-10-05 10:20 | L&D Progress Notes ---
PROGRESS NOTES Datetime Report Generated by CPN: 10/05/2017 10:19 PROGRESS NOTE Impression: Reassuring Heart Rate Procedures: Sterile Vag Exam Plan: Continue Present Management; Augmentation Informed Consent Obtained: Vaginal Delivery Informed Consent Obtained: Vaginal Delivery; Risks, Benefits and Alternatives Discussed Vital Signs : Reviewed Comment: doing well coping with ctx denies need for pain medication AROM, clear Start pitocin Anticiapte VAGINAL EXAM Dilatation: 5 Dilatation: 4 Effacement: 80 Effacement: 70 Station: 0 Station: -2 Contractions: irreg Contractions: irreg MEMBRANES Membranes: Ruptured Membranes: Intact Amniotic Fluid Color: Clear FETUS A FHR - Baseline: 130 Variability: Moderate 6-25bpm Accelerations: 15X15 Decelerations: None FHR Category: Category I Estimated Weight (gm): 3700 Presentation: Vertex SIGNATURE SIGNATURE: [id number];[id number] SIGNATURE: [id number];14,[id number] SIGNATURE: 14,[id number] SIGNATURE: [id number] SIGNATURE: 14,[id number] Assignment: Donta Camp MD Signature: with User ID: [email or web address] : with User ID: Christine
[2017-10-05] MEDS ORDERED: MAG HYDROX/AL HYDROX/SIMETH SUSP 30 ML UDCUP ONE (11:50)
[2017-10-05] MEDS ORDERED: NALBUPHINE HCL INJ 10 MG/1 ML AMPULE ONE (12:40)
[2017-10-05] MEDS ORDERED: PROMETHAZINE HCL INJ 25 MG/1 ML VIAL ONE (12:40)
[2017-10-05] MEDS ORDERED: MEASLES,MUMPS&RUBELLA VACC/PF 0.5 ML VIAL SUBCUT PRN (13:47)
[2017-10-05] MEDS ORDERED: BENZOCAINE/MENTHOL AEROSOL SPRAY 56 ML TOP PRN (13:47)
[2017-10-05] MEDS ORDERED: OXYTOCIN/NORMAL SALINE 20 UNIT/1,000 ML RTUINJ IV PRN (13:47)
[2017-10-05] MEDS ORDERED: ZOLPIDEM TARTRATE 5 MG TABLET PO PRN (13:47)
[2017-10-05] MEDS ORDERED: DIPH/PERTUSS(ACELL)/TETANUS VAC/PF 0.5 ML SYR (>=10YO) IM PRN (13:47)
[2017-10-05] MEDS ORDERED: IBUPROFEN 800 MG TABLET ONE (15:36)
--- NOTE | 2017-10-05 15:44 | Delivery Summary ---
Del Sum A-C Datetime Report Generated by CPN: 10/05/2017 15:43 DELIVERY PERSONNEL DELIVERY PERSONNEL: [id number] Delivery Doctor:: Carrol Church CNM Nurse Luggage Maker Certified:: Carrol Church CNM Labor and Delivery Nurse:: Kelsi Che RNpinion staker Nurse:: AUSTYN Bunch Direct Care Worker/LABELING MACHINE OPERATOR: [facility] Additional Personnel: : Juan Vinson RN MATERNAL INFORMATION Delivery Anesthesia: None Medications After Delivery: Pitocin Bolus-Please Comment; Other-Please Comment Meds After Delivery Comment: Pitocin 20 units in 1000 ml nss , Cytotec 1000mcg placed rectal for vaginal bleeding Maternal Complications: None Provider Comments: of viable female infant over intact perineum, head, shoulders, and body delivered without difficulty. with spontaneous cry and respirations, to maternal abdomen, cord clamped X2 cut free after 2 min delay, by pts support person, spontaneaous delivery of placenta appears intact, 3 VC, delivered via pugh. Vagina and perineum inspected, no lacerations noted. Hemostasis acheived with external fundal massage and IV pitocin, mother and infant in stable condition, routine pp care. LABOR SUMMARY EDC: 10/01/2017 00:00 No. Babies in Womb: 1 Attempted: No Labor Anesthesia: None LABOR INFORMATION Reason for Induction: Not Applicable Onset of Labor: 10/05/2017 10:00 Complete Dilatation: 10/05/2017 13:21 Other Ripening Agents: n/a Oxytocin: Augmentation Group B Beta Strep: Negative Antibiotics # of Doses: 0 Antibiotics Time of Last Dose: n/a Name of Antibiotic Given: n/a Steroids Given: None Reason Steroids Not Administered: Not Applicable Other Reason Not Administered: n/a MEMBRANES Membranes Rupture Method: Artificial Rupture of Membranes: 10/05/2017 10:13 Length of Rupture (hr): 3.22 Amniotic Fluid Color: Clear Amniotic Fluid Amount: Moderate Amniotic Fluid Odor: Normal STAGES OF LABOR Stage 1 hr: 3 Stage 1 min: 21 Stage 2 hr: 0 Stage 2 min: 5 Stage 3 hr: 0 Stage 3 min: 4 Total Time in Labor hr: 3 Total Time in Labor min: 30 VAGINAL DELIVERY Episiotomy: None Laceration #1: None Laceration Extension #1: N/A Laceration Repair: Not Applicable Sponge Count Correct: N/A Sharps Count Correct: N/A CSECTION DELIVERY Primary Indication: N/A Secondary Indication: N/A CSection Incidence: N/A Labor: N/A Elective: N/A CSection Incision: N/A BABY A INFORMATION Infant Delivery Date/Time: 10/05/2017 13:26 Method of Delivery: Vaginal Born in Route : No : N/A Forceps: N/A Vacuum Extraction: N/A Shoulder Dystocia : No PRESENTATION/POSITION BABY A Presentation: Cephalic Cephalic Presentation: Vertex Vertex Position: Right Occipital Anterior Breech Presentation: N/A PLACENTA INFORMATION BABY A Placenta Delivery Time : 10/05/2017 13:30 Placenta Method of Delivery: Spontaneous Placenta Status: Delivered SCORES BABY A Heart Rate 1 min: >100 bpm Resp Effort 1 min: Good Cry Reflex Irritability 1 min: Cough or Sneeze or Pulls Away Muscle Tone 1 min: Active Motion Color 1 min: Body [place], Extremities Blue Resuscitation Effort 1 min: Tactile Stimulation SCORE 1 MIN: 9 Heart Rate 5 min: >100 bpm Resp Effort 5 min: Good Cry Reflex Irritability 5 min: Cough or Sneeze or Pulls Away Muscle Tone 5 min: Active Motion Color 5 min: Body [place], Extremities Blue Resuscitation Effort 5 min: N/A SCORE 5 MIN: 9 Resuscitation Effort 10 min: N/A INFORMATION BABY A Gestational Age at Delivery: 40.4 Gestational Status: Full Term- 39- 40.6 Weeks Outcome : Liveborn Infant Condition : Stable Infant Sex: Female IDENTIFICATION BABY A Infant Verification Date/Time: 10/05/2017 13:39 ID Band Number: [id number] Mother's Name Verified: Yes Infant RN Verifying Infant: , RN and C.Dionisio, RN WEIGHT/LENGTH BABY A Infant Birthweight (gm): 3270 Infant Weight (lb): 7 Weight (oz): 3 Length (in): 19.00 Length (cm): 48.26 CORD INFORMATION BABY A No. Cord Vessels: 3 Nuchal Cord : N/A Cord Blood Taken: Yes-For Storage (Mom's Blood type +) Infant Suction: None ASSESSMENT BABY A Complications: None Physical Findings at Delivery: Within Normal Limits Respirations: Appears Normal Skin to Skin: Yes Skin to Skin Time (min): 60 Live Games Dealer/ALS Called : No Infant Care By: Komal Vinson RN/ Asia Che RN Transferred To: Remains with Mother BABY B INFORMATION : N/A SIGNATURES Assignment: Donta Camp MD Signature: with User ID: Christine : with User ID: Christine
[2017-10-05] MEDS: IBUPROFEN 800 MG TABLET PO SCH ×2 (17:06→21:02)
[2017-10-05] MEDS: DOCUSATE SODIUM 100 MG CAPSULE PO SCH (17:32)
[2017-10-05] MEDS: FERROUS SULFATE 325 MG TABLET PO SCH (17:32)
[2017-10-05] MEDS: DIBUCAINE 1% OINTMENT 28 GM TP PRN (21:06)
[2017-10-06] MEDS: IBUPROFEN 800 MG TABLET PO SCH ×3 (05:24→21:42)
[2017-10-06 07:12] LABS: HEMATOCRIT 26.4 % (36.0-47.0); HEMOGLOBIN 9.5 g/dL (12.0-15.5); MEAN CORPUSCULAR HEMOGLOBIN 30.5 pg (27.0-33.4); MEAN CORPUSCULAR HGB CONC 35.8 g/dL (32.0-36.0); MEAN CORPUSCULAR VOLUME 85 fl (80-97); PLATELET COUNT 172 10^3/uL (150-450); RED CELL DISTRIBUTION WIDTH 13.1 % (11.5-14.0); WHITE BLOOD COUNT 10.9 10^3/uL (4.0-10.5)
--- NOTE | 2017-10-06 09:13 | PDOC PROGRESS REPORT ---
Subjective-OB Progress Note for:: 10/06/17 Subjective: Doing well, no c/o, breast feeding, voiding, scant bleeding Physical Exam (OB) Vital Signs: Temp Pulse Resp BP Pulse Ox 98.2 F 70 16 102/55 L 98 10/06/17 07:57 10/06/17 07:57 10/06/17 07:57 10/06/17 07:57 10/06/17 07:57 Intake & Output 10/05/17 10/06/17 10/07/17 06:59 06:59 06:59 Intake Total 450 Balance 450 Weight 158.4 kg - Lochia Lochia Amount: Scant < 10 ml Lochia Color: Rubra/Red - Abdomen Description: Tender, Soft, Round Hernia Present: No Fundal Description: Firm, Midline Fundal Height: u/u - u/2 Objective-Diagnostic Laboratory: 10/06/17 06:47 10/06/17 06:47 WBC 10.9 H RBC 3.10 L Hgb 9.5 L Hct 26.4 L MCV 85 MCH 30.5 MCHC 35.8 RDW 13.1 Plt Count 172 Assessment and Plan(PN) - Assessment and Plan (1) Delivery normal Is this a current diagnosis for this admission?: Yes (2) Low grade squamous intraepith lesion on cytologic smear cervix (lgsil) Is this a current diagnosis for this admission?: Yes (3) Depression Qualifiers: Depression Type: unspecified Qualified Code(s): F32.9 - Major depressive disorder, single episode, unspecified Is this a current diagnosis for this admission?: Yes (4) Limited care Qualifiers: Trimester: unspecified trimester Qualified Code(s): O09.30 - Supervision of with insufficient care, unspecified trimester Is this a current diagnosis for this admission?: Yes - Time Spent with Patient Time with patient: Less than 15 minutes - Disposition Anticipated Discharge: Home Within: within 48 hours
[2017-10-06] MEDS: SENNOSIDES/DOCUSATE 8.6-50 MG 1 EACH TABLET PO SCH (09:47)
[2017-10-06] MEDS: PRENATAL VITAMIN W DHA CAPSULE PO SCH (09:47)
[2017-10-06] MEDS: DOCUSATE SODIUM 100 MG CAPSULE PO SCH ×2 (09:47→17:52)
[2017-10-06] MEDS: FERROUS SULFATE 325 MG TABLET PO SCH ×2 (09:47→17:52)
[2017-10-06] MEDS ORDERED: ACETAMINOPHEN 325 MG TABLET PO PRN (20:14)
[2017-10-07] MEDS: IBUPROFEN 800 MG TABLET PO SCH ×2 (05:34→13:50)
[2017-10-07] MEDS: PRENATAL VITAMIN W DHA CAPSULE PO SCH (08:16)
[2017-10-07] MEDS: DOCUSATE SODIUM 100 MG CAPSULE PO SCH (08:16)
[2017-10-07] MEDS: FERROUS SULFATE 325 MG TABLET PO SCH (08:16)
[2017-10-07] MEDS: DIBUCAINE 1% OINTMENT 28 GM TP PRN (08:17)
[2017-10-07] MEDS: SENNOSIDES/DOCUSATE 8.6-50 MG 1 EACH TABLET PO SCH (08:17)
--- NOTE | 2017-10-07 08:30 | PDOC PROGRESS REPORT ---
Subjective-OB Progress Note for:: 10/07/17 Subjective: Doing well, no c/o, aware she needs to F/U for abnormal pap, Physical Exam (OB) Vital Signs: Temp Pulse Resp BP Pulse Ox 98.5 F 65 18 119/72 98 10/06/17 20:43 10/06/17 20:43 10/06/17 20:43 10/06/17 20:43 10/06/17 20:43 Intake & Output 10/06/17 10/07/17 10/08/17 06:59 06:59 06:59 Intake Total 450 1040 Balance 450 1040 - PIH/Pre-Eclampsia Clonus: Negative Headache: Absent Epigastric Pain: No Visual Changes: No - Lochia Lochia Amount: Scant < 10 ml Lochia Color: Rubra/Red - Abdomen Description: Soft, Round Hernia Present: No Fundal Description: Firm Fundal Height: u/u - u/2 Objective-Diagnostic Laboratory: 10/06/17 06:47 Assessment and Plan(PN) - Assessment and Plan (1) Delivery normal Is this a current diagnosis for this admission?: Yes (2) Low grade squamous intraepith lesion on cytologic smear cervix (lgsil) Is this a current diagnosis for this admission?: Yes (3) Depression Qualifiers: Depression Type: unspecified Qualified Code(s): F32.9 - Major depressive disorder, single episode, unspecified Is this a current diagnosis for this admission?: Yes (4) Limited care Qualifiers: Trimester: unspecified trimester Qualified Code(s): O09.30 - Supervision of with insufficient care, unspecified trimester Is this a current diagnosis for this admission?: Yes - Time Spent with Patient Time with patient: Less than 15 minutes - Disposition Anticipated Discharge: Home Within: Other - home today
--- NOTE | 2017-10-07 08:33 | PDOC DISCHARGE SUMMARY ---
Final Diagnosis Discharge Date: 10/07/17 - Final Diagnosis (1) Delivery normal Is this a current diagnosis for this admission?: Yes (2) Low grade squamous intraepith lesion on cytologic smear cervix (lgsil) Is this a current diagnosis for this admission?: Yes (3) Depression Is this a current diagnosis for this admission?: Yes (4) Limited care Is this a current diagnosis for this admission?: Yes Discharge Data - Discharge Medication Home Medications: Pediatric Multivitamin No.42 [Flintstones] 1 each PO DAILY 09/03/17 Gestational Age: 40.4 Reason(s) for Admission: Onset of Labor Admission Note: augmentation Procedures: NST, Ultrasound Intrapartum Procedure(s): Spontaneous Vaginal Delivery - Data Baby 1 Female at 1 minute: 9 at 5 minutes: 9 Weight: 3.26 kg Home with Mother: Yes Complications: No - Diagnosis Test Laboratory: Temp Pulse Resp BP Pulse Ox 98.5 F 65 18 119/72 98 10/06/17 20:43 10/06/17 20:43 10/06/17 20:43 10/06/17 20:43 10/06/17 20:43 10/05/17 10/05/17 10/06/17 03:10 07:12 06:47 RBC 3.59 L 3.10 L Hgb 10.6 L 9.5 L Hct 30.2 L 26.4 L Urine Opiates Screen NEGATIVE - Discharge information/Instructions Discharge Activity: Activity As Tolerated, No Lifting Over 10 Pounds, No Lifting /Push/Pulling, Pelvic Rest Discharge Diet: As Tolerated, Regular Disposition: HOME, SELF-CARE Follow up with: [facility] in: 4, Weeks
[2017-10-07 09:50] VITALS: BP 121/81
== END 2017-10-07 14:01 | disposition home or self-care (01) | DRG 775 ==
LOC: LC 03:00 → LR 06:42 → 2S 15:59
PROVIDERS: ADMIT Obstetrics & Gynecology; ATTEND Obstetrics & Gynecology
PROC: 10E0XZZ Delivery of Products of Conception, External Approach (ICD-10-PCS; principal; 2017-10-05)
DX: O99.344 Other mental disorders complicating childbirth (principal); F32.9 Major depressive disorder, single episode, unspecified; J45.909 Unspecified asthma, uncomplicated; O99.52 Diseases of the respiratory system complicating childbirth; O99.334 Smoking (tobacco) complicating childbirth; F17.210 Nicotine dependence, cigarettes, uncomplicated; O28.2 Abnormal cytological finding on antenatal screening of mother; Z3A.40 40 weeks gestation of pregnancy; Z37.0 Single live birth
CPT/HCPCS: 36415; 80307; 81005; 85025; 85027; 86592; 86850; 86900; 86901; J2300; J2550; J2590; J3490; S0119

== ENCOUNTER 2017-10-08 23:00 | Emergency (ER) | payer MEDICAID ==
[2017-10-08 23:53] VITALS: BP 100/55
--- NOTE | 2017-10-09 00:14 | ER Document Report ---
ED Extremity Problem, Lower - General Chief Complaint: Leg Swelling Stated Complaint: LEG SWELLING Time Seen by Provider: 10/08/17 23:54 Notes: The patient is a 27-year-old female, three days post- from a , presents with mild swelling of her bilateral legs and intermittent tingling of her ankles. Patient denies leg pain, history of blood clots, difficulty walking , fevers, nausea, vomiting, headache, blurry vision or focal weakness. TRAVEL OUTSIDE OF THE [place] IN LAST 30 DAYS: No - Related Data Allergies/Adverse Reactions: grape Allergy (Verified 10/05/17 03:41) latex Allergy (Verified 10/05/17 03:41) oxycodone [From Percocet] Allergy (Verified 10/05/17 03:41) tramadol Allergy (Verified 10/05/17 03:41) Past Medical History - General Information source: Patient - Social History Smoking Status: Unknown if Ever Smoked Family History: Reviewed & Not Pertinent Renal/ Medical History: Denies: Hx Peritoneal Dialysis Past Surgical History: Reports: Hx Cholecystectomy, Hx Orthopedic Surgery, Hx Tonsillectomy Review of Systems - Review of Systems Notes: REVIEW OF SYSTEMS: CONSTITUTIONAL: -fevers, -chills EENT: -eye pain, -difficulty swallowing, -nasal congestion CARDIOVASCULAR: -chest pain, -syncope. RESPIRATORY: -cough, -SOB GASTROINTESTINAL: -abdominal pain, -nausea, -vomiting, -diarrhea GENITOURINARY: -dysuria, -hematuria MUSCULOSKELETAL: +B/L lower leg swelling, -back pain, -neck pain SKIN: -rash or skin lesions. HEMATOLOGIC: -easy bruising or bleeding. LYMPHATIC: -swollen, enlarged glands. NEUROLOGICAL: -altered mental status or loss of consciousness, -headache, + intermittent tingling around ankles PSYCHIATRIC: -anxiety, -depression. ALL OTHER SYSTEMS REVIEWED AND NEGATIVE. Physical Exam - Vital signs Vitals: Temp Pulse Resp BP Pulse Ox 98.2 F 65 16 100/55 L 99 10/08/17 23:52 10/08/17 23:52 10/08/17 23:52 10/08/17 23:52 10/08/17 23:52 - Notes Notes: PHYSICAL EXAMINATION: GENERAL: Well-appearing, well-nourished and in no acute distress. HEAD: Atraumatic, normocephalic. EYES: Pupils equal round and reactive to light, extraocular movements intact, sclera anicteric, conjunctiva are normal. ENT: nares patent, oropharynx clear without exudates. Moist mucous membranes. NECK: Normal range of motion, supple without lymphadenopathy LUNGS: Breath sounds clear to auscultation bilaterally and equal. No wheezes rales or rhonchi. HEART: Regular rate and rhythm without murmurs ABDOMEN: Soft, nontender, normoactive bowel sounds. No guarding, no rebound. No masses appreciated. EXTREMITIES: Normal range of motion, 1+ edema up to ankles. No cyanosis. Strong DP and PT pulses. NEUROLOGICAL: Cranial nerves grossly intact. Normal speech, normal gait. Normal sensory and motor exams. PSYCH: Normal mood, normal affect. SKIN: Warm, Dry, normal turgor, no rashes or lesions noted. Course - Re-evaluation Re-evalutation: Patient appears well. Bedside ultrasound of her bilateral lower extremities show compressibility of her femoral vein, superficial femoral vein and popliteal vein. No evidence of DVT on bedside ultrasound. She has strong distal pulses. Her blood pressure is normal and she is no history of preeclampsia. No focal neuro signs to suggest cavernous sinus thrombosis. Instructed her to keep her legs elevated follow with her OB. Given strict return precautions and she understands - Vital Signs Vital signs: Temp Pulse Resp BP Pulse Ox 98.2 F 65 16 100/55 L 99 10/08/17 23:52 10/08/17 23:52 10/08/17 23:52 10/08/17 23:52 10/08/17 23:52 Discharge - Discharge Clinical Impression: Leg swelling Peripheral neuropathy Qualifiers: Peripheral neuropathy type: polyneuropathy, unspecified Qualified Code(s): G62.9 - Polyneuropathy, unspecified Condition: Stable Disposition: HOME, SELF-CARE Additional Instructions: There is no evidence of blood clots in your legs tonight. May take Tylenol, eat a low-salt diet and keep your legs elevated as much as possible. Follow-up with your OB as instructed. Return to the ER if you have any worsening symptoms or any other concerns. Referrals: IRINA HANSON MD [Primary Care Provider] - Follow up as needed
== END 2017-10-09 00:30 | disposition home or self-care (01) ==
LOC: ER 23:00
DX: O90.89 Other complications of the puerperium, not elsewhere classified (principal); M79.89 Other specified soft tissue disorders; G62.9 Polyneuropathy, unspecified; Z90.49 Acquired absence of other specified parts of digestive tract; Z91.040 Latex allergy status; Z88.6 Allergy status to analgesic agent
CPT/HCPCS: 99283

== ENCOUNTER 2018-07-23 16:44 | Emergency (ER) | payer SELFPAY ==
[2018-07-23 17:21] VITALS: BP 106/51
[2018-07-23] MEDS ORDERED: NORMAL SALINE 1000 ML 1,000 ML IV ONE (18:38)
[2018-07-23] MEDS ORDERED: METOCLOPRAMIDE HCL INJ/PF 10 MG/2 ML SDV IV ONE (18:38)
--- NOTE | 2018-07-23 18:40 | ER Document Report ---
ED Medical Screen (RME) - General Chief Complaint: Nausea/Vomiting/Diarrhea Stated Complaint: VOMITING Time Seen by Provider: 07/23/18 18:35 Primary Care Provider: IRINA HANSON MD [Primary Care Provider] - Follow up as needed Mode of Arrival: Ambulatory Information source: Patient Notes: Patient is a 27-year-old female who presents to the emergency department with complaints of nausea, vomiting, diarrhea that has been ongoing for 2 days. Patient also reports mild headache. Patient states she has been around somebody with similar symptoms. She denies any abdominal pain or fever. She has no past medical history and does not take medications daily. She was given Zofran and Benadryl by EMS, she has not vomited since then however she still reports nausea . Exam: Abdomen soft, nontender with no guarding and no rebound. Heart sounds S1-S2 present with no tachycardia noted. I have greeted and performed a rapid initial assessment of this patient. A co mprehensive ED assessment and evaluation of the patient, analysis of test results and completion of the medical decision making process will be conducted by additional ED providers. Dictation of this chart was performed using voice recognition software; therefore, there may be some unintended grammatical errors. TRAVEL OUTSIDE OF THE [place] IN LAST 30 DAYS: No - Related Data Allergies/Adverse Reactions: grape Allergy (Verified 10/05/17 03:41) latex Allergy (Verified 10/05/17 03:41) oxycodone [From Percocet] Allergy (Verified 10/05/17 03:41) tramadol Allergy (Verified 10/05/17 03:41) Past Medical History Renal/ Medical History: Denies: Hx Peritoneal Dialysis Past Surgical History: Reports: Hx Cholecystectomy, Hx Orthopedic Surgery, Hx Tonsillectomy - Immunizations History of Influenza Vaccine for 01/2017 - 06/2017 Season: No Physical Exam - Vital signs Vitals: Temp Pulse Resp BP Pulse Ox 97.9 F 64 16 106/51 L 99 07/23/18 17:20 07/23/18 17:20 07/23/18 17:20 07/23/18 17:20 07/23/18 17:20 Course - Vital Signs Vital signs: Temp Pulse Resp BP Pulse Ox 97.9 F 64 16 106/51 L 99 07/23/18 17:20 07/23/18 17:20 07/23/18 17:20 07/23/18 17:20 07/23/18 17:20 Doctor's Discharge - Discharge Referrals: IRINA HANSON MD [Primary Care Provider] - Follow up as needed
[2018-07-23 19:16] LABS: ABSOLUTE EOSINOPHILS # (AUTO) 0.1 10^3/uL (0.0-0.6); ABSOLUTE MONOCYTES (AUTO) 0.5 10^3/uL (0.1-1.4); BASOPHILS % (AUTO) 0.4 % (0-2); EOSINOPHILS % (AUTO) 1.2 % (0-6); HEMATOCRIT 42.8 % (36.0-47.0); HEMOGLOBIN 14.9 g/dL (12.0-15.5); LYMPHOCYTES % (AUTO) 13.3 % (13-45); MEAN CORPUSCULAR HEMOGLOBIN 29.1 pg (27.0-33.4); MEAN CORPUSCULAR HGB CONC 34.9 g/dL (32.0-36.0); MEAN CORPUSCULAR VOLUME 83 fl (80-97); MONOCYTES % (AUTO) 6.8 % (3-13); PLATELET COUNT 178 10^3/uL (150-450); RED BLOOD COUNT 5.13 10^6/uL (3.72-5.28); RED CELL DISTRIBUTION WIDTH 13.3 % (11.5-14.0); SEGMENTED NEUTROPHILS % (AUTO) 78.3 % (42-78); TOTAL CELLS COUNTED % (AUTO) 100 %; WHITE BLOOD COUNT 7.6 10^3/uL (4.0-10.5)
[2018-07-23 19:37] LABS: ALANINE AMINOTRANSFERASE 48 U/L (9-52); ALBUMIN 4.6 g/dL (3.5-5.0); ALKALINE PHOSPHATASE 66 U/L (38-126); ANION GAP 13 (5-19); ASPARTATE AMINO TRANSFERASE 68 U/L (14-36); BILIRUBIN,DIRECT 0.4 mg/dL (0.0-0.4); BILIRUBIN,TOTAL 0.9 mg/dL (0.2-1.3); BLOOD UREA NITROGEN 16 mg/dL (7-20); CALCIUM 9.4 mg/dL (8.4-10.2); CARBON DIOXIDE 23 mmol/L (22-30); CHLORIDE 103 mmol/L (98-107); GLUCOSE 76 mg/dL (75-110); POTASSIUM 4.1 mmol/L (3.6-5.0); SODIUM 139.1 mmol/L (137-145); TOTAL PROTEIN 7.5 g/dL (6.3-8.2)
== END 2018-07-23 19:20 | disposition left against medical advice (07) ==
LOC: ER 16:44
DX: R11.2 Nausea with vomiting, unspecified (principal); R19.7 Diarrhea, unspecified; R51 Headache; Z91.040 Latex allergy status; Z88.6 Allergy status to analgesic agent; Z90.49 Acquired absence of other specified parts of digestive tract
CPT/HCPCS: 99284; 96374; 36415; 84703; 85025; 80053; J2765; J7030

== ENCOUNTER 2018-10-08 08:44 | Emergency (ER) | payer SELFPAY ==
[2018-10-08 08:52] VITALS: BP 100/48
[2018-10-08] MEDS ORDERED: MUPIROCIN 2% OINTMENT 22 GM TP ONE (09:39)
--- NOTE | 2018-10-08 09:43 | ER Document Report ---
HPI - HPI Patient complains to provider of: skin irritation Time Seen by Provider: 10/08/18 09:27 Onset: Last week Onset/Duration: Persistent Severity: Moderate Pain Level: 3 Context: Patient presents emergency department with skin irritation to her right upper thigh groin area and under her left arm. Patient reports she believes she got bit by an insect. Has several areas of erythema scaling no pustule no vesicles. Denies fever vomiting diarrhea. Reports the areas are not draining. 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 Associated Symptoms: None Exacerbated by: Denies Relieved by: Denies Similar symptoms previously: No Recently seen / treated by doctor: No - CONSTITUTIONAL Constitutional: DENIES: Fever, Chills - EENT EENT: DENIES: Sore Throat, Ear Pain, Eye problems - NEURO Neurology: DENIES: Headache, Weakness, Vision blurred, Dizzinesss / Vertigo - CARDIOVASCULAR Cardiovascular: DENIES: Chest pain - RESPIRATORY Respiratory: DENIES: Trouble Breathing, Coughing - GASTROINTESTINAL Gastrointestinal: DENIES: Abdominal Pain, Black / Bloody Stools - URINARY Urinary: DENIES: Dysuria, Urgency, Frequency - REPRODUCTIVE Reproductive: DENIES: : - MUSCULOSKELETAL Musculoskeletal: DENIES: Extremity pain Past Medical History - General Information source: Patient Last Menstrual Period: 2 weeks ago - Social History Smoking Status: Current Every Day Smoker Chew tobacco use (# tins/day): No Frequency of alcohol use: None Drug Abuse: None Occupation: Pole dancer Lives with: Family Family History: Reviewed & Not Pertinent Patient has suicidal ideation: No Patient has homicidal ideation: No - Medical History Medical History: Negative Renal/ Medical History: Denies: Hx Peritoneal Dialysis Past Surgical History: Reports: Hx Cholecystectomy, Hx Orthopedic Surgery, Hx Tonsillectomy Vertical Provider Document - CONSTITUTIONAL Agree With Documented VS: Yes Exam Limitations: No Limitations General Appearance: WD/WN, No Apparent Distress - INFECTION CONTROL TRAVEL OUTSIDE OF THE [place] IN LAST 30 DAYS: No - HEENT HEENT: Atraumatic, Normocephalic - NECK Neck: Normal Inspection, Supple - RESPIRATORY Respiratory: Breath Sounds Normal, No Respiratory Distress - CARDIOVASCULAR Cardiovascular: Regular Rate - GI/ABDOMEN Gastrointestinal: Abdomen Soft, Abdomen Non-Tender - BACK Back: Normal Inspection - MUSCULOSKELETAL/EXTREMETIES Musculoskeletal/Extremeties: [place] [facility] - NEURO Level of Consciousness: Awake, Alert, Appropriate Motor/Sensory: No Motor Deficit - DERM Integumentary: Warm, Dry Adult Front & Back Diagram: 1 - Small circular erythema flat no blister no pustule. scaling noticed around erythema 2 - Multiple shattered areas of small circular erythema with scaling around the sites no warmth no discharge noted no pustules no vesicles Course - Re-evaluation Re-evalutation: 10/08/18 09:46 Patient was instructed on Bactroban and Keflex. Instructed to monitor the sites good handwashing clean the pole return to the emergency department for worsening symptoms she verbalized understanding. - Vital Signs Vital signs: Temp Pulse Resp BP Pulse Ox 97.7 F 64 16 100/48 L 99 10/08/18 08:51 10/08/18 08:51 10/08/18 08:51 10/08/18 08:51 10/08/18 08:51 Discharge - Discharge Clinical Impression: Skin irritation, Folliculitis Disposition: HOME, SELF-CARE Instructions: Bactroban Ointment ([facility]), Cephalexin ([facility]), Folliculitis ([facility]) Additional Instructions: *You have been treated for irritation and folliculitis *Take medication as prescribed, apply Bactroban ointment twice a day under your left arm into your groin area *Monitor your skin for signs of increasing infection such as increasing pain, redness, swelling, warmth *Wash the site twice daily and keep the pole you use clean wash your hands frequently *Follow up with a primary care provider within 1 week for recheck or return to the emergency department for worsening symptoms *Return to ED for signs of increasing infection, worsening condition, changes, needs Prescriptions: Cephalexin Monohydrate [Keflex 500 mg Capsule] 500 mg PO QID #20 capsule Forms: Smoking Cessation Education
== END 2018-10-08 09:53 | disposition home or self-care (01) ==
LOC: ER 08:44
DX: L73.9 Follicular disorder, unspecified (principal); F17.200 Nicotine dependence, unspecified, uncomplicated
CPT/HCPCS: 99281; J3490